=== PATIENT | male | born 1945 | race Caucasian/White ===

== ENCOUNTER 2019-01-01 21:18 | Inpatient (IN) | payer OTHER ==
[~2019-01-01] VITALS: Ht 170.2 cm; Wt 68.0 kg
[~2019-01-01 21:18] MED LIST: AMLODIPINE BESYL5 MG PO; ATENOLOL25 MG PO; AVAPRO150 MG PO; CHOLESTYRAMINE P4 GM PO; FLUCONAZOLE100 MG PO; HYDRALAZINE HCL25 MG PO; ISORDIL10 MG PO; LASIX20 MG PO; LOPERAMIDE2 MG PO; LOPID PO; LOSARTAN POTAS100 MG PO; NORVASC10 MG PO; OYSTER SHELL CA PO; PRE PROTEIN 2030 ML PO; TAMS0.4C PO; XOPENEX0.63 MG/3 IH; [UNRECOGNIZED DRUG - OTHER] PO
--- NOTE | 2019-01-01 21:43 | NUR ---
SE RECIBE PTE EN AMBULANCIA ALERTA Y ORIENTADO X3. SE RECIB PTE CON TNG INSERTADO EN NARE DAVID DRENANDO 400ML DE RESIDUAL GASTRICO. PTE TRANSFERIDO DE [facility]. SE COLOCA PTE EN SUBCION LOW INTERMITENTE DRENANDO 700ML DE RESIDUAL GASTRICO.
--- NOTE | 2019-01-01 22:15 | NUR ---
LY ORIENTA A PACIENTE SOBRE TRATAMIENTO. VOLODYMYR MUESTRAS DE LABORATORIO ORDENADAS. CANALIZA CON AREA DE VENOPUNCION ANYA DE EDEMA O ENROJECIMIENTO. ADMINISTRA MEDICAMENTOS ORDENADOS. SE MANTIENE CONECTADO A SUCCION. SE MANTIENE EN OBSTRUCCION POR CAMBIOS.
--- NOTE | 2019-01-01 23:00 | NUR ---
SE RECIBE PACIENTE ALERTA Y ORIENTADO POR ROBERT ESFERAS EN MARY CON BARANDAS ELEVADAS POR JUÁREZ SEGURIDAD. PACEINTE CON R/L PATENTE ANYA DE EDEMA Y ENROJECIMIENTO BAJANDO @ 100ML/HR. SE OVBSERVA NGT EN FOSA NASAL LT PATENTE DRENANDO SECRECIONES COLOR VERDOSA. PACIENTE DRENA 700ML DE TURNO ANTERIOR. PACIENTE CON COLOSTOMIA EN LADO RT DEL ABDOMEN. PENDIENTE CONSULTA CON DRA. Collin WREN. SE MANTIENE ABJO OBSERVACION POR CAMBIOS. PACIENTE ASISTIDA RESPIRATORIAMENTE CON VM 50%. PACIENTE AL MOMENTO CON BUEN PATRON RESPIRATORIO Y PIE TIBIA AL TACTO.
--- NOTE | 2019-01-02 06:00 | NUR ---
PACIENTE DRENA DE NGT 300ML COLOR VERDOSA. PACIENTE CONTINUA CON TX MEDICO.
--- NOTE | 2019-01-02 09:59 | NUR ---
PACIENTE ALERTA Y ACTIVO EN COMPANIA DE FAMILIAR. PACIENTE EN CAMA CON BARRANDAS ELEVADAS POR JUÁREZ SEGURIDAD. PACIENTE CONECTADO EN MONITOR CARDIACO Y OXIMETRIA DE PULSO. PACIENTE CON COLOSTOMIA, PACIENTE CON VENTURY MASK AL 50 %. PACIENTE CON TUBO NASOGASTRICO EN FOSA NASAL IZQUIERDA A SUCCION LIS. SE EB A PACIENTE EN CAMA BAJO OBSERVACION POR CAMBIOS EN JUÁREZ CONDICION.
== END 2019-01-07 20:04 | disposition home or self-care (01) | DRG 388 ==
LOC: ER 21:18 → ICU-2 01-02 09:12 → SURH 01-02 09:12 → SEC-K 01-03 12:44 → SURH 01-03 16:28
PROVIDERS: ADMIT Surgery
PROC: 3E0F7GC Introduction of Other Therapeutic Substance into Respiratory Tract, Via Natural or Artificial Opening (ICD-10-PCS; principal; 2019-01-02)
PROC: 4A033R1 Measurement of Arterial Saturation, Peripheral, Percutaneous Approach (ICD-10-PCS; 2019-01-02)
PROC: 4A12X4Z Monitoring of Cardiac Electrical Activity, External Approach (ICD-10-PCS; 2019-01-03)
DX: K56.690 Other partial intestinal obstruction (principal); I50.33 Acute on chronic diastolic (congestive) heart failure; I13.0 Hypertensive heart and chronic kidney disease with heart failure and stage 1 through stage 4 chronic kidney disease, or unspecified chronic kidney disease; I82.531 Chronic embolism and thrombosis of right popliteal vein; J90 Pleural effusion, not elsewhere classified; N18.1 Chronic kidney disease, stage 1; I48.2 Chronic atrial fibrillation; R09.02 Hypoxemia; J44.9 Chronic obstructive pulmonary disease, unspecified; N40.0 Benign prostatic hyperplasia without lower urinary tract symptoms; E78.49 Other hyperlipidemia; Z93.2 Ileostomy status; Z95.0 Presence of cardiac pacemaker; Z79.01 Long term (current) use of anticoagulants; Z85.048 Personal history of other malignant neoplasm of rectum, rectosigmoid junction, and anus

== ENCOUNTER 2019-01-08 05:52 | Emergency (ER) | payer OTHER ==
[~2019-01-08] VITALS: Ht 157.5 cm; Wt 74.8 kg
== END 2019-01-08 11:42 | disposition home or self-care (01) ==
LOC: ER 05:52
DX: T80.89XA Other complications following infusion, transfusion and therapeutic injection, initial encounter (principal)

== ENCOUNTER 2019-05-16 00:34 | Inpatient (IN) | payer OTHER ==
[~2019-05-16] VITALS: Ht 170.2 cm; Wt 73.5 kg
[2019-05-16] MEDS ORDERED: CARVEDILOL25 MG (01:03)
[2019-05-16] MEDS ORDERED: LISINOPRIL5 MG (01:03)
[2019-05-16] MEDS ORDERED: ELIQUIS5 MG (01:04)
--- NOTE | 2019-05-16 01:05 | NUR ---
SE RECIBE PACIENTE ALERTA Y ORIENTADO X3 DE UNIDAD DE AMBULANCIA. PACIENTE MUESTRA TUBO NASOGASTRICO EN FOSSA NASAL DERECHA Y IVF 0.9% NACL CON ANGIO #20 EN BRAZO DAVID. PACIENTE MUESTRA COLOSTOMIA EN LADO DERECHO DEL ABDOMEN Y TESFAYE A GRAVEDAD. PACIENTE REFIER TENER ON OBSTRUCCION DEL INTESTINO CON VOMITOS HACE 4 RODRIGUEZ. PACIENTE SE MUESTRA SATURANDO BAJO TEA CON BUEN PATRON RESPIRATORIO. PACIENTE VERBALIZA NO TENER DIFICULTAD RESPIRATORIA. SE CONECTA PACIENTE A CANULA NASAL A 4 LITROS. PACIENTE SE ENCUENTRA ACOMPANADO POR SOBRINA.
== END 2019-05-22 18:07 | DRG 389 ==
LOC: ER 00:34 → SURH 07:23
PROVIDERS: ADMIT Surgery
PROC: 0DH67UZ Insertion of Feeding Device into Stomach, Via Natural or Artificial Opening (ICD-10-PCS; principal; 2019-05-16)
PROC: 3E0G76Z Introduction of Nutritional Substance into Upper GI, Via Natural or Artificial Opening (ICD-10-PCS; 2019-05-16)
PROC: 4A033R1 Measurement of Arterial Saturation, Peripheral, Percutaneous Approach (ICD-10-PCS; 2019-05-16)
PROC: 3E0F7GC Introduction of Other Therapeutic Substance into Respiratory Tract, Via Natural or Artificial Opening (ICD-10-PCS; 2019-05-16)
PROC: 02HV33Z Insertion of Infusion Device into Superior Vena Cava, Percutaneous Approach (ICD-10-PCS; 2019-05-16)
PROC: 0T9B70Z Drainage of Bladder with Drainage Device, Via Natural or Artificial Opening (ICD-10-PCS; 2019-05-17)
PROC: 3E0336Z Introduction of Nutritional Substance into Peripheral Vein, Percutaneous Approach (ICD-10-PCS; 2019-05-18)
DX: K56.690 Other partial intestinal obstruction (principal); J44.1 Chronic obstructive pulmonary disease with (acute) exacerbation; E44.0 Moderate protein-calorie malnutrition; J90 Pleural effusion, not elsewhere classified; G72.81 Critical illness myopathy; I50.32 Chronic diastolic (congestive) heart failure; I13.0 Hypertensive heart and chronic kidney disease with heart failure and stage 1 through stage 4 chronic kidney disease, or unspecified chronic kidney disease; R09.02 Hypoxemia; I11.0 Hypertensive heart disease with heart failure; I48.2 Chronic atrial fibrillation; N39.8 Other specified disorders of urinary system; N40.0 Benign prostatic hyperplasia without lower urinary tract symptoms; N18.2 Chronic kidney disease, stage 2 (mild); F17.210 Nicotine dependence, cigarettes, uncomplicated; F02.80 Dementia in other diseases classified elsewhere, unspecified severity, without behavioral disturbance, psychotic disturbance, mood disturbance, and anxiety; Z88.6 Allergy status to analgesic agent; Z95.0 Presence of cardiac pacemaker; Z79.01 Long term (current) use of anticoagulants; Z85.038 Personal history of other malignant neoplasm of large intestine; Z08 Encounter for follow-up examination after completed treatment for malignant neoplasm; Z93.2 Ileostomy status